=== PATIENT | male | born 1985 | race Hispanic/Latino ===

== ENCOUNTER 2019-09-23 10:23 | Emergency (ER) | payer SELFPAY ==
[2019-09-23] MEDS ORDERED: LIDOCAINE 1% MPF 5 ML VIAL ONE (11:01)
[2019-09-23] MEDS ORDERED: TETANUS & DIPHTHERIA TOX,ADULT 0.5 ML VIAL ONE (11:02)
--- NOTE | 2019-09-23 11:20 | EDPHYS ---
Physician Documentation [facility] – [place], [place] Name: Austin Roberts Age: 34 yrs Sex: Male : 1985 Arrival Date: 09/23/2019 Time: 10:32 Bed 19 Private MD: ED Physician Johnny Richard HPI: 09/22 10:50 This 34 yrs old Male presents to ER via Unassigned with complaints of pm1 Laceration To Hand. 10:50 The patient has a laceration related to: accidentally smashed his left 5th finger with pm1 a hammer resulting in a laceration occurred at home. The laceration(s) is(are) located on the palmar aspect of distal phalanx of left little finger. Onset: The symptoms/episode began/occurred just prior to arrival. Associated signs and symptoms: The patient has no apparent associated signs or symptoms, Pertinent negatives: numbness distal to injury, suspected foreign body. The patient has not experienced similar symptoms in the past. The patient has not recently seen a physician. Historical: - Allergies: 10:50 No Known Allergies; ss - Home Meds: 10:50 None [Active]; ss - PMHx: 10:50 None; ss - PSHx: 10:50 None; ss - Immunization history:: Adult Immunizations up to date. - Social history:: Smoking status: Patient denies any tobacco usage or history of. ROS: 10:50 Constitutional: Negative for fever, chills, and weight loss, Cardiovascular: Negative pm1 for chest pain, palpitations, and edema, Respiratory: Negative for shortness of breath, cough, wheezing, and pleuritic chest pain, Abdomen/GI: Negative for abdominal pain, nausea, vomiting, diarrhea, and constipation. 10:50 Neuro: Negative for headache, weakness, numbness, tingling, and seizure. 10:50 MS/extremity: Positive for laceration, pain, of the palmar aspect of distal phalanx of left little finger, Negative for decreased range of motion, deformity. 10:50 Skin: Positive for laceration(s), of the palmar aspect of distal phalanx of left little finger. Exam: 10:50 Constitutional: This is a well developed, well nourished patient who is awake, alert, pm1 and in no acute distress. Head/Face: Normocephalic, atraumatic. Vital Signs: 10:46 BP 132 / 78; Pulse 70; Resp 16; Temp 98.4(TE); Pulse Ox 99% on R/A; Weight 83.01 kg; ss Height 5 ft. 5 in. (165.10 cm); Pain 0/10; 10:46 Body Mass Index 30.45 (83.01 kg, 165.10 cm) ss Laceration: 11:17 Wound Repair of 1cm ( 0.4in ) subcutaneous laceration to palmar aspect of distal pm1 phalanx of left little finger. Irregularly shaped.. Distal neuro/vascular/tendon intact. Anesthesia: Local anesthetic administered with 2 mls of 1% lidocaine. Wound prep: Extensive cleansing with hibiclenz by me, Wound irrigation with saline by me, Wound explored extensively, Copious irrigation. Skin closed with 3 4-0 Prolene using simple sutures and sterile technique. Dressed with Neosporin, 4x4's. Patient tolerated well. MDM: 10:43 Patient medically screened. pm1 10:50 Data reviewed: vital signs. Data interpreted: Pulse oximetry: on room air is 99 %. pm1 Interpretation: normal. 10:50 Refusal of service: The patient/guardian displays adequate decision making capability pm1 and despite a detailed discussion of alternatives, benefits, risks, and consequences refuses: all X-rays, Patient just wants sutures and tetanus shot. 11:17 Counseling: I had a detailed discussion with the patient and/or guardian regarding: the pm1 historical points, exam findings, and any diagnostic results supporting the discharge/admit diagnosis, the need for outpatient follow up, a hand specialist, to return to the emergency department if symptoms worsen or persist or if there are any questions or concerns that arise at home. 09/22 10:48 Order name: Prolene, Sutures; Complete Time: 11:04 pm1 09/22 10:48 Order name: Dressing - Wound; Complete Time: 11:04 pm1 09/22 10:48 Order name: Gloves, Sterile; Complete Time: 11:04 pm1 09/22 10:48 Order name: Setup Suture Tray; Complete Time: 11:04 pm1 Administered Medications: 11:04 Drug: Tetanus-Diphtheria Toxoid Adult 0.5 ml {Garbage Collector Driver: [employer]. Exp: 04/12/2022. Lot #: [id number]. } Route: IM; Site: right deltoid; 11:58 Follow up: Response: No adverse reaction; RASS: Alert and Calm (0) ll1 11:30 Drug: Lidocaine (1 %) 5 ml {Note: used by practioner for suture repair..} Volume: 5 ml; ll1 Route: Infiltration; 11:58 Follow up: Response: No adverse reaction; RASS: Alert and Calm (0) ll1 Disposition: 17:51 Co-signature as Attending Physician, Johnny Richard MD. ma2 Disposition: 09/23/19 11:20 Discharged to Home. Impression: Laceration without foreign body of left little finger without damage to nail. - Condition is Stable. - Discharge Instructions: Laceration Care, Adult. - Prescriptions for Keflex 500 mg Oral Capsule - take 1 capsule by ORAL route every 12 hours for 10 days; 20 capsule. Tramadol 50 mg Oral Tablet - take 1 tablet by ORAL route every 8 hours as needed; 12 tablet. - Medication Reconciliation Form, Thank You Letter, Antibiotic Education, Prescription Opioid Use form. - Follow up: Emergency Department; When: As needed; Reason: Worsening of condition. Follow up: Private Physician; When: 10 - 14 days; Reason: Wound Recheck, Recheck today's complaints, Continuance of care, Staple/Suture removal, Re-evaluation by your physician. - Problem is new. - Symptoms have improved. Signatures: Mai Farmer RN RN Chris Velasquez, INFRASTRUCTURE ARCHITECT INFRASTRUCTURE ARCHITECT pm1 Johnny Richard MD MD ia2 Juana Chaidez RN RN Hung Siegel RN RN ll1 Corrections: (The following items were deleted from the chart) 11:58 11:20 09/23/2019 11:20 Discharged to Home. Impression: Laceration without foreign body ll1 of left little finger without damage to nail. Condition is Stable. Forms are Medication Reconciliation Form, Thank You Letter, Antibiotic Education, Prescription Opioid Use. Follow up: Emergency Department; When: As needed; Reason: Worsening of condition. Follow up: Private Physician; When: 10 - 14 days; Reason: Wound Recheck, Recheck today's complaints, Continuance of care, Staple/Suture removal, Re-evaluation by your physician. Problem is new. Symptoms have improved. pm1
--- NOTE | 2019-09-23 11:20 | ER ---
Nurse's Notes [facility] Name: Austin Roberts Age: 34 yrs Sex: Male : 1985 Arrival Date: 09/23/2019 Time: 10:32 Bed 19 Private MD: Diagnosis: Laceration without foreign body of left little finger without damage to nail Presentation: 09/22 10:46 Chief complaint: Patient states: smash injury to L fifth finger with hammer. Injury ss occurred 45 minutes ago. Coronavirus screen: Client denies travel out of the [place] in the last 14 days. At this time, the client does not indicate any symptoms associated with coronavirus-19. Ebola Screen: Patient denies exposure to infectious person. Patient denies travel to an Ebola-affected area in the 21 days before illness onset. Complicating Factors: There are no complicating factors for this patient. Initial Sepsis Screen: Does the patient meet any 2 criteria? No. Patient's initial sepsis screen is negative. Does the patient have a suspected source of infection? No. Patient's initial sepsis screen is negative. Risk Assessment: Do you want to hurt yourself or someone else? Patient reports no desire to harm self or others. Onset of symptoms was September 23, 2019. 10:46 Method Of Arrival: Ambulatory ss 10:46 Acuity: AMILCAR 4 ss Triage Assessment: 11:57 General: Appears in no apparent distress. Behavior is calm, cooperative. Injury ll1 Description: Laceration sustained to palmar aspect of distal phalanx of left little finger. Historical: - Allergies: 10:50 No Known Allergies; ss - Home Meds: 10:50 None [Active]; ss - PMHx: 10:50 None; ss - PSHx: 10:50 None; ss - Immunization history:: Adult Immunizations up to date. - Social history:: Smoking status: Patient denies any tobacco usage or history of. Screenin:57 Abuse screen: Denies threats or abuse. Nutritional screening: No deficits noted. ll1 Tuberculosis screening: No symptoms or risk factors identified. Fall Risk None identified. Total Kaiser Fall Scale indicates No Risk (0-24 pts). Assessment: 11:55 General: Appears in no apparent distress. Behavior is calm, cooperative. Pain: Denies ll1 pain. Derm: sutures to 5th digit. PMS intact Reports laceration 5th digit, crush injury. Musculoskeletal: Reports pain in palmar aspect of distal phalanx of left little finger. Injury Description: Crush injury. 11:58 Injury Description: Laceration is 0.5 to 2.5 cm long, not bleeding. ll1 Vital Signs: 10:46 BP 132 / 78; Pulse 70; Resp 16; Temp 98.4(TE); Pulse Ox 99% on R/A; Weight 83.01 kg; ss Height 5 ft. 5 in. (165.10 cm); Pain 0/10; 10:46 Body Mass Index 30.45 (83.01 kg, 165.10 cm) ED Course: 10:32 Patient arrived in ED. fj1 10:43 Chris Velasquez NP is PHCP. pm1 10:43 Johnny Richard MD is Attending Physician. pm1 10:49 Juana Chaidez, RN is Primary Nurse. 10:50 Triage completed. 10:50 Arm band placed on right wrist. 11:58 Patient has correct armband on for positive identification. Bed in low position. Call ll1 light in reach. Side rails up X 1. 11:58 No provider procedures requiring assistance completed. Patient did not have IV access ll1 during this emergency room visit. 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 Exp: 04/12/2022. Lot #: [id number]. } Route: IM; Site: right deltoid; 11:58 Follow up: Response: No adverse reaction; RASS: Alert and Calm (0) 1 11:30 Drug: Lidocaine (1 %) 5 ml {Note: used by practioner for suture repair..} Volume: 5 ml; ll1 Route: Infiltration; 11:58 Follow up: Response: No adverse reaction; RASS: Alert and Calm (0) 1 Outcome: 11:20 Discharge ordered by . pm1 11:58 Patient left the ED. ll1 11:58 Discharged to home ambulatory. ll1 11:58 Condition: stable 11:58 Discharge instructions given to patient, Instructed on discharge instructions, follow up and referral plans. medication usage, wound care, Demonstrated understanding of instructions, follow-up care, medications, wound care, Prescriptions given X 2. Signatures: Mai Farmer RN RN ss Chris Velasquez, R PROGRAMMER R PROGRAMMER pm1 Alexandro Main fj1 Juana Chaidez, RN RN ah Hung Siegel RN RN ll1
[2019-09-23 12:02] VITALS: BP 132/78; TEMP 98.4; O2SAT 99
== END 2019-09-23 11:58 | disposition home or self-care (01) ==
LOC: ER 10:23
PROC: 0JQK0ZZ Repair Left Hand Subcutaneous Tissue and Fascia, Open Approach (ICD-10-PCS; principal; 2019-09-23)
DX: S61.217A Laceration without foreign body of left little finger without damage to nail, initial encounter (principal); W27.8XXA Contact with other nonpowered hand tool, initial encounter; Y93.9 Activity, unspecified; Y92.009 Unspecified place in unspecified non-institutional (private) residence as the place of occurrence of the external cause; Z23 Encounter for immunization
CPT/HCPCS: 90471; 90714; 99283